=== PATIENT | female | born 1955 | race Caucasian/White ===

== ENCOUNTER 2017-01-24 10:25 | Inpatient (IN) | payer BC ==
[~2017-01-24] VITALS: Ht 170.2 cm; Wt 89.7 kg
[~2017-01-24 10:25] MED LIST: AMBIEN 5MG TABLE5 MG PO; CITRACAL + D CA1 TAB; INDERAL LA 60MG60 MG; NORCO 325 MG-51 TAB PO; PRINIVIL10 MG PO
[2017-06-12] VITALS (11 sets, daily range): BP systolic 110–149; BP diastolic 54–78; PULSE 46–62; TEMP 97.4–98.6
[2017-06-12] MEDS ORDERED: FLONASEALLERGY NS (01:22)
[2017-06-12] MEDS ORDERED: PRINIVIL20 MG PO (01:25)
[2017-06-12] MEDS ORDERED: MYSOLINE 5050 MG/TAB PO (01:25)
[2017-06-13] VITALS: BP 111/57; PULSE 56; TEMP 98.2
[2017-06-13 04:00] VITALS: BP 113/53; PULSE 47; TEMP 98.5
[2017-06-13 06:33] LABS: HEMATOCRIT 30.5 % (37.0-47.0); HEMOGLOBIN 9.9 g/dl (12.5-16.0)
[2017-06-13 08:07] VITALS: BP 113/50; PULSE 50; TEMP 98.6
[2017-06-13 12:05] VITALS: BP 117/55; PULSE 51; TEMP 97.9
[2017-06-13 15:14] VITALS: BP 125/55; PULSE 52; TEMP 98.5
[2017-06-13 20:00] VITALS: BP 131/59; PULSE 62; TEMP 99.2
[2017-06-14 04:00] VITALS: BP 145/66; PULSE 80; TEMP 98.2
[2017-06-14 05:54] LABS: HEMOGLOBIN 10.8 g/dl (12.5-16.0)
[2017-06-14 08:15] VITALS: BP 136/65; PULSE 77; TEMP 98.1
[2017-06-14 12:13] VITALS: BP 129/62; PULSE 75; TEMP 98.1
[2017-06-14 15:07] VITALS: BP 139/65; PULSE 81; TEMP 97.8
[2017-06-14 21:06] VITALS: BP 128/64; PULSE 103; TEMP 97.5
[2017-06-15 00:52] VITALS: BP 115/53; PULSE 72; TEMP 98.5
[2017-06-15 03:50] VITALS: BP 123/58; PULSE 67; TEMP 98.4
[2017-06-15] MEDS ORDERED: ASPI325T6 PO (06:25)
[2017-06-15] MEDS ORDERED: NORCO 325 MG-7.1 TAB PO (06:25)
[2017-06-15] MEDS ORDERED: SENOKOT S 50 MG1 TAB PO (06:26)
[2017-06-15] MEDS ORDERED: ROXICODONE 55 MG/TAB PO (06:26)
[2017-06-15 07:02] LABS: HEMATOCRIT 31.5 % (37.0-47.0); HEMOGLOBIN 10.2 g/dl (12.5-16.0)
[2017-06-15 07:21] VITALS: BP 134/70; PULSE 67; TEMP 98.3
== END 2017-06-15 10:35 | disposition home or self-care (01) | DRG 470 ==
LOC: JCC 04-03 07:30
PROVIDERS: Orthopaedic Surgery
PROC: 0SRD0J9 Replacement of Left Knee Joint with Synthetic Substitute, Cemented, Open Approach (ICD-10-PCS; principal; 2017-06-12 07:30)
DX: M17.12 Unilateral primary osteoarthritis, left knee (principal)
CPT/HCPCS: A4315; A9284; C1713; C1776; J0690; J1100; J2250; J2270; J2405; J2704; J3010; J7120

== ENCOUNTER → 2017-03-28 | Outpatient (CLI) | payer BC ==
[~2017-03-28] MED LIST changes: +ASPI325T6 PO; +FLONASEALLERGY NS; +MYSOLINE 5050 MG/TAB PO; +NORCO 325 MG-7.1 TAB PO; +PRINIVIL20 MG PO; +ROXICODONE 55 MG/TAB PO; +SENOKOT S 50 MG1 TAB PO
== END ==
LOC: COL.LAB 13:22
DX: Z01.812 Encounter for preprocedural laboratory examination (principal)

== ENCOUNTER 2017-07-10 08:19 | Inpatient (IN) | payer BC ==
[~2017-07-10] VITALS: Ht 170.2 cm; Wt 61.3 kg
[2017-07-30] MEDS ORDERED: VITAMIN D32000 I1 PO (07:36)
[2017-07-30] MEDS ORDERED: VITAMINC1000TA PO (07:36)
[2017-07-30] MEDS ORDERED: MULTI VITAMINS1 TAB PO (07:36)
[2017-07-30] MEDS ORDERED: FOLIC ACID800 MCG PO (07:37)
[2017-07-30] MEDS ORDERED: FEOSOL45 MG PO (07:37)
[2017-09-18] VITALS (13 sets, daily range): BP systolic 108–129; BP diastolic 55–81; PULSE 46–73; TEMP 97.6–98.9
[2017-09-19] VITALS (7 sets, daily range): BP systolic 90–134; BP diastolic 53–68; PULSE 45–60; TEMP 98–98.9
[2017-09-19 06:55] LABS: HEMATOCRIT 30.3 % (37.0-47.0); HEMOGLOBIN 9.9 g/dl (12.5-16.0)
[2017-09-20 03:21] VITALS: BP 129/74; PULSE 59; TEMP 99
[2017-09-20 06:39] LABS: HEMATOCRIT 30.2 % (37.0-47.0); HEMOGLOBIN 9.6 g/dl (12.5-16.0)
[2017-09-20] MEDS ORDERED: ASPI325T6 PO (06:59)
[2017-09-20] MEDS ORDERED: NORCO 325 MG-7.1 TAB PO (07:00)
[2017-09-20] MEDS ORDERED: SENOKOT S 50 MG1 TAB PO (07:01)
[2017-09-20] MEDS ORDERED: ROXICODONE 55 MG/TAB PO (07:01)
[2017-09-20 07:30] VITALS: BP 124/61; PULSE 62; TEMP 98.3
[2017-09-20 12:15] VITALS: BP 105/45; PULSE 56; TEMP 98.5
[2017-09-20 16:01] VITALS: BP 116/65; PULSE 54; TEMP 98.2
[2017-09-20 20:12] VITALS: BP 130/86; PULSE 65; TEMP 99.5
[2017-09-21 04:00] VITALS: BP 133/58; PULSE 70; TEMP 98.4
[2017-09-21 07:45] VITALS: BP 131/51; PULSE 70; TEMP 99.2
== END 2017-09-21 09:50 | disposition home or self-care (01) | DRG 470 ==
LOC: JCC 09-18 05:23
PROVIDERS: Orthopaedic Surgery
PROC: 0SRC0J9 Replacement of Right Knee Joint with Synthetic Substitute, Cemented, Open Approach (ICD-10-PCS; principal; 2017-09-18 07:30)
DX: M17.11 Unilateral primary osteoarthritis, right knee (principal); I12.9 Hypertensive chronic kidney disease with stage 1 through stage 4 chronic kidney disease, or unspecified chronic kidney disease; N18.3 Chronic kidney disease, stage 3 (moderate); Z85.520 Personal history of malignant carcinoid tumor of kidney
CPT/HCPCS: A4314; A4315; A9284; C1713; C1776; J0690; J1100; J2250; J2270; J2405; J2704; J3010; J7030; J7120

== ENCOUNTER 2017-07-30 06:43 | Day surgery (SDC) | payer BC ==
[~2017-07-30] VITALS: Ht 170.2 cm; Wt 88.6 kg
[2017-07-30 07:28] VITALS: BP 141/72; PULSE 75; TEMP 98.3
[2017-07-30] MEDS ORDERED: VITAMIN D32000 I1 PO (07:36)
[2017-07-30] MEDS ORDERED: VITAMINC1000TA PO (07:36)
[2017-07-30] MEDS ORDERED: MULTI VITAMINS1 TAB PO (07:36)
[2017-07-30] MEDS ORDERED: FEOSOL45 MG PO (07:37)
[2017-07-30] MEDS ORDERED: FOLIC ACID800 MCG PO (07:37)
[2017-07-30 09:50] VITALS: BP 131/70; PULSE 59; TEMP 98.3
[2017-07-30 10:05] VITALS: BP 132/72; PULSE 61
[2017-07-30 10:20] VITALS: BP 132/72; PULSE 61
[2017-07-30 10:42] VITALS: BP 135/81; PULSE 59; TEMP 98.1
== END 2017-07-30 11:02 | disposition home or self-care (01) ==
LOC: SDCO 06:43
DX: M24.662 Ankylosis, left knee (principal); Z96.652 Presence of left artificial knee joint; Z90.710 Acquired absence of both cervix and uterus; G25.0 Essential tremor; M17.0 Bilateral primary osteoarthritis of knee; Z80.9 Family history of malignant neoplasm, unspecified; Z68.32 Body mass index [BMI] 32.0-32.9, adult; I12.9 Hypertensive chronic kidney disease with stage 1 through stage 4 chronic kidney disease, or unspecified chronic kidney disease; N18.3 Chronic kidney disease, stage 3 (moderate); Z85.528 Personal history of other malignant neoplasm of kidney
CPT/HCPCS: J1100; J1885; J2270; J2405; J2704; J3010; J7120

== ENCOUNTER → 2017-09-03 | Outpatient (CLI) | payer BC ==
[~2017-09-03] MED LIST changes: +FEOSOL45 MG PO; +FOLIC ACID800 MCG PO; +MULTI VITAMINS1 TAB PO; +VITAMIN D32000 I1 PO; +VITAMINC1000TA PO
== END ==
LOC: MC.RAD 14:12
DX: Z12.31 Encounter for screening mammogram for malignant neoplasm of breast (principal); M85.89 Other specified disorders of bone density and structure, multiple sites

== ENCOUNTER → 2017-09-06 | Outpatient (CLI) | payer BC | LOC: COL.LAB 10:39 | DX: Z01.812 Encounter for preprocedural laboratory examination (principal) ==

== ENCOUNTER → 2017-09-10 | Outpatient (CLI) | payer BC | LOC: COL.RAD 10:58 | DX: Z85.520 Personal history of malignant carcinoid tumor of kidney (principal); Z96.0 Presence of urogenital implants ==

== ENCOUNTER 2017-11-19 08:11 | Day surgery (SDC) | payer BC ==
[~2017-11-19] VITALS: Ht 170.2 cm; Wt 90.5 kg
[2017-11-19 08:29] VITALS: BP 137/85; PULSE 84; TEMP 97.3
[2017-11-19 10:15] VITALS: BP 132/67; PULSE 71; TEMP 97.4
[2017-11-19] MEDS ORDERED: NORCO 325 MG-51 TAB PO (10:25)
[2017-11-19 10:30] VITALS: BP 128/65; PULSE 60
[2017-11-19 10:45] VITALS: BP 143/63; PULSE 60
== END 2017-11-19 11:10 | disposition home or self-care (01) ==
LOC: SDCO 08:11
DX: M24.661 Ankylosis, right knee (principal); I12.9 Hypertensive chronic kidney disease with stage 1 through stage 4 chronic kidney disease, or unspecified chronic kidney disease; N18.3 Chronic kidney disease, stage 3 (moderate); G43.909 Migraine, unspecified, not intractable, without status migrainosus; M19.90 Unspecified osteoarthritis, unspecified site; Z90.710 Acquired absence of both cervix and uterus; Z90.5 Acquired absence of kidney; Z79.82 Long term (current) use of aspirin; Z96.653 Presence of artificial knee joint, bilateral; Z88.1 Allergy status to other antibiotic agents; Z85.528 Personal history of other malignant neoplasm of kidney
CPT/HCPCS: J1885; J2704; J3010; J7120

== ENCOUNTER → 2018-05-22 | Outpatient (REF) | LOC: ZLAB.WCH 08:40 | DX: Z01.89 Encounter for other specified special examinations (principal) ==

== ENCOUNTER → 2018-09-04 | Outpatient (CLI) | payer BC | LOC: MC.RAD 07:27 | DX: Z00.00 Encounter for general adult medical examination without abnormal findings (principal); Z12.31 Encounter for screening mammogram for malignant neoplasm of breast; M85.89 Other specified disorders of bone density and structure, multiple sites ==

== ENCOUNTER → 2018-09-09 | Outpatient (CLI) | payer BC | LOC: COL.RAD 12:19 | DX: Z85.528 Personal history of other malignant neoplasm of kidney (principal); Z98.890 Other specified postprocedural states; Z90.5 Acquired absence of kidney ==

== ENCOUNTER → 2019-09-11 | Outpatient (CLI) | payer MEDICARE, BC | LOC: COL.RAD 08:13 | DX: R31.21 Asymptomatic microscopic hematuria (principal); Z85.520 Personal history of malignant carcinoid tumor of kidney; Z90.5 Acquired absence of kidney ==

== ENCOUNTER → 2019-10-17 | Outpatient (CLI) | payer MEDICARE, BC | LOC: COL.CARD 09:29 | DX: R55 Syncope and collapse (principal); G25.0 Essential tremor ==

== ENCOUNTER → 2020-11-02 | Outpatient (CLI) | payer MEDICARE, BC ==
[~2020-11-02] MED LIST changes: +BENADRYL25 M2 PO; +KLONOPIN 1MG1 MG PO; +TRIAMCINOLONE A15 GM TP
== END ==
LOC: COL.RAD 13:53
DX: R31.1 Benign essential microscopic hematuria (principal); Z85.520 Personal history of malignant carcinoid tumor of kidney; Z98.890 Other specified postprocedural states

== ENCOUNTER → 2021-11-01 | Outpatient (CLI) | payer MEDICARE, BC | LOC: COL.RAD 10:11 | DX: Z85.520 Personal history of malignant carcinoid tumor of kidney (principal) ==

== ENCOUNTER → 2024-02-13 | Outpatient (CLI) | payer MEDICARE, BC ==
[~2024-02-13] MED LIST changes: +Iohexol 300 - 10 ML VIAL IV ONE; +Triamcinolone 40 MG/ML 1 ML VIAL IJ ONE
== END ==
LOC: COL.RAD 10:34
DX: M25.552 Pain in left hip (principal)
CPT/HCPCS: J0665; J3301; Q9967

== ENCOUNTER → 2024-03-10 | Outpatient (CLI) | payer MEDICARE, BC ==
[~2024-03-10] MED LIST changes: -Iohexol 300 - 10 ML VIAL IV ONE; -Triamcinolone 40 MG/ML 1 ML VIAL IJ ONE
== END ==
LOC: COL.CAR 08:10
DX: Z45.09 Encounter for adjustment and management of other cardiac device (principal)